=== PATIENT | female | born 1950 | race Caucasian/White ===

== ENCOUNTER 2022-09-29 09:56 | Emergency (ER) | payer MEDICARE, MEDICAID ==
[2022-09-29 10:12] VITALS: BP 207/81
--- NOTE | 2022-09-29 10:53 | XRAY Report ---
PROCEDURE: Chest 2 View X-Ray INDICATIONS: productive cough TECHNIQUE: 2 views of the chest were acquired. COMPARISON: None. FINDINGS: Surgical changes and devices: None. Lungs and pleura: 2.1 cm nodular opacity overlying the left upper lobe. Mediastinum: Mediastinal contours are normal. Heart size is normal. Bones and chest wall: No suspicious bony abnormalities. Soft tissues appear unremarkable. IMPRESSION: 2.1 cm left upper lobe opacity. No priors are available for comparison. Etiology is uncertain as yolanda gnancy versus infection cannot be excluded. CT is recommended for further evaluation. Reviewed by: Yessica Max MD on 09/29/2022 10:52 AM [facility] Approved by: Yessica Max MD on 09/29/2022 10:52 AM [facility] Station ID: [id number]
[2022-09-29 11:44] LABS: CORONAVIRUS 229E-RESP PCR NOT DETECTED; CORONAVIRUS HKU1-RESP PCR NOT DETECTED; CORONAVIRUS NL63-RESP PCR NOT DETECTED; CORONAVIRUS OC43-RESP PCR NOT DETECTED
[2022-09-29 11:45] LABS: B. PARAPERTUSSIS- RESP PCR PAN NOT DETECTED; B. PERTUSSIS- RESP PCR PANEL NOT DETECTED; C. PNEUMONIAE- RESP PCR PANEL NOT DETECTED; HUMAN METAPNEUMOVIRUS NOT DETECTED; INFLUENZA A- RESP PCR PANEL NOT DETECTED; INFLUENZA B - RESP PCR PANEL NOT DETECTED; M. PNEUMONIAE- RESP PCR PANEL NOT DETECTED; PARAINFLUENZA VIRUS 1 NOT DETECTED; PARAINFLUENZA VIRUS 2 NOT DETECTED; PARAINFLUENZA VIRUS 3 NOT DETECTED; PARAINFLUENZA VIRUS 4 NOT DETECTED; RHINOVIRUS/ENTEROVIRUS NOT DETECTED; RSV- RESP PCR PANEL NOT DETECTED; SARS-CoV-2 -RESP PCR PANEL NOT DETECTED
[2022-09-29 12:04] LABS: BASOPHILS % (AUTO) 0.3 %; EOSINOPHILS # (AUTO) 0.1 10^3/uL (0.0-0.7); EOSINOPHILS % (AUTO) 0.8 %; HCT - HEMATOCRIT 41.2 % (37.0-47.0); HGB - HEMOGLOBIN 13.1 g/dL (12.0-16.0); LYMPHOCYTES # (AUTO) 1.5 10^3/uL (1.5-3.5); LYMPHOCYTES % (AUTO) 18.8 %; MEAN CORPUSCULAR HEMOGLOBIN 29.9 pg (27.0-31.0); MEAN CORPUSCULAR HGB CONC 31.8 g/dL (32.0-36.0); MEAN CORPUSCULAR VOLUME 94.1 fL (81.0-99.0); MEAN PLATELET VOLUME 9.4 fL (7.9-10.8); MONOCYTES # (AUTO) 0.6 10^3/uL (0.0-1.0); MONOCYTES % (AUTO) 7.9 %; NEUTROPHILS # (AUTO) 5.7 10^3/uL (1.5-6.6); NEUTROPHILS % (AUTO) 72.1 %; PLT - PLATELET COUNT 266 10^3/uL (130-450); RED BLOOD COUNT 4.38 10^6/uL (4.20-5.40); RED CELL DISTRIBUTION WIDTH 12.6 % (12.0-15.0); WHITE BLOOD COUNT 7.9 x10^3/uL (4.8-10.8)
[2022-09-29 12:18] LABS: ALBUMIN 3.7 g/dL (3.2-5.5); ALBUMIN/GLOBULIN RATIO 0.9 (1.0-2.2); BILIRUBIN,TOTAL 0.3 mg/dL (0.2-1.0); CALCIUM 9.5 mg/dL (8.5-10.3); CREATININE 0.7 mg/dL (0.4-1.0); POTASSIUM 4.1 mmol/L (3.5-5.0); TOTAL PROTEIN 7.6 g/dL (6.7-8.2)
[2022-09-29] MEDS ORDERED: iohexoL-300 100 ML VIAL ONE (14:21)
--- NOTE | 2022-09-29 14:35 | ED Physician Documentation ---
History of Present Illness - Stated complaint Stated Complaint: COUGH - Chief complaint Chief Complaint: Resp - History obtained from History obtained from: Patient - Additonal information Additional information: The patient comes to the emergency department chief complaint of runny nose and nonproductive cough for the last approximately week. She states she has not really felt sick in any other way, other than a little bit of a scratchy throat. No GI symptoms. No fevers or chills. She finally came in because the cough is bothering her and keeping her up at night. She states that she has not had any weight loss and in fact, has gained weight over the last 10 years. No other complaints at this time. No underlying respiratory conditions. PD PAST MEDICAL HISTORY - Past Medical History Past Medical History: No Cardiovascular: None Respiratory: None Neuro: None Endocrine/Autoimmune: None GI: None FOOD SCIENTIST: None : None HEENT: None Psych: None Musculoskeletal: None Derm: None - Past Surgical History Past Surgical History: No - Present Medications Home Medications: Ambulatory Orders Medication Instructions Recorded Confirmed No Known Home Medications 09/29/22 09/29/22 - Allergies Allergies/Adverse Reactions: Allergies Allergy/AdvReac Type Severity Reaction Status Date / Time No Known Drug Allergies Allergy Verified 09/29/22 10:12 - Social History Does the pt smoke?: Yes Smoking Status: Current every day smoker Does the pt drink ETOH?: No Does the pt have substance abuse?: No - Immunizations Immunizations are current?: Yes PD ED PE NORMAL - Vitals Vital signs reviewed: Yes - General General: Alert and oriented X 3, No acute distress, Well developed/nourished - HEENT HEENT: Atraumatic, PERRL, EOMI, Moist mucous membranes - Neck Neck: Supple, no meningeal sign - Cardiac Cardiac: RRR, No murmur, Strong equal pulses - Respiratory Respiratory: No respiratory distress, Clear bilaterally - Abdomen Abdomen: Soft, Non tender, Non distended - Derm Derm: Warm and dry - Extremities Extremities: No deformity, No edema - Neuro Neuro: Alert and oriented X 3 - Psych Psych: Normal mood, Normal affect Results - Vitals Vitals: Oxygen O2 Source Room air - Labs Labs: Laboratory Tests 09/29/22 09/29/22 09/29/22 10:14 11:58 11:58 WBC 7.9 RBC 4.38 Hgb 13.1 Hct 41.2 MCV 94.1 MCH 29.9 MCHC 31.8 L RDW 12.6 Plt Count 266 MPV 9.4 Neut # (Auto) 5.7 Lymph # (Auto) 1.5 [place] # (Auto) 0.6 Eos # (Auto) 0.1 Baso # (Auto) 0.0 Absolute Nucleated RBC 0.00 Nucleated RBC % 0.0 Sodium 139 Potassium 4.1 Chloride 102 Carbon Dioxide 27 Anion Gap 10.0 BUN 19 Creatinine 0.7 Estimated GFR (MDRD) 82 L Glucose 84 Calcium 9.5 Total Bilirubin 0.3 AST 15 ALT 13 Alkaline Phosphatase 76 Total Protein 7.6 Albumin 3.7 Globulin 3.9 Albumin/Globulin Ratio 0.9 L Lipase 28 Nasal Adenovirus (PCR) NOT DETECTED Nasal B. parapertussis DNA (PCR) NOT DETECTED Nasal Coronavir 229E PCR NOT DETECTED Nasal Coronavir HKU1 PCR NOT DETECTED Nasal Coronavir NL63 PCR NOT DETECTED Nasal Coronavir OC43 PCR NOT DETECTED Nasal Enterovir/Rhinovir PCR NOT DETECTED Nasal Influenza B PCR NOT DETECTED Nasal Influenza A PCR NOT DETECTED Nasal Parainfluen 1 PCR NOT DETECTED Nasal Parainfluen 2 PCR NOT DETECTED Nasal Parainfluen 3 PCR NOT DETECTED Nasal Parainfluen 4 PCR NOT DETECTED Nasal RSV (PCR) NOT DETECTED Nasal B.pertussis DNA PCR NOT DETECTED Nasal C.pneumoniae (PCR) NOT DETECTED Jalil Human Metapneumo PCR NOT DETECTED Nasal M.pneumoniae (PCR) NOT DETECTED Nasal SARS-CoV-2 (PCR) NOT DETECTED - Rads (name of study) Chest x-ray Radiology: Final report received, See rad report (Nonspecific opacity, 2.1 cm, left upper lobe. Follow-up CT recommended) PD Medical Decision Making - ED course Complexity details: reviewed results, re-evaluated patient, considered differential, d/w patient ED course: The patient was worked up with a chest x-ray and respiratory PCR initially. These were ordered and reviewed by me, and PCR was found to be negative. Chest x-ray showed a 2.1 cm opacity in the left upper lobe, the etiology of which was unclear. CT was recommended to follow this up and evaluate for malignancy versu s infection. Labs including CBC and ER abdominal panel were ordered by me in preparation for CT scan with contrast. The patient had on evaluation of the labs by me, a normal white blood cell count and normal kidney function. I had discussed with her the findings on x-ray and initially, the patient was agreeable to CT. However, when the data entry technician came to get her, the patient stated she had changed her mind and did not want to get the CT right now and wanted her IV out. I advised her that if she does not get the CT here, then she should definitely follow-up with her primary doctor to discuss having this done soon as possible because of the possibility of malignancy. The patient has expressed understanding. Departure - Departure Disposition: 01 Home, Self Care Clinical Impression: Upper respiratory tract infection Qualifiers: URI type: unspecified viral URI Qualified Code(s): J06.9 - Acute upper respiratory infection, unspecified Condition: Stable Instructions: ED Viral Syndrome Comments: As we have discussed, your labs and viral panel look good. The immediate symptoms of runny nose and acute cough are most likely caused by one of the other viruses that we do not have a specific test for, which are many. On your chest x-ray, you were found to have a "spot" in your left upper lung, which could represent anything from a benign nodule to infection to cancer. As such, we did discuss doing a CT scan here to get better detail on this, which was the recommendation of the radiologist. However, you have declined to have the CT done. It is very important that you follow-up with your doctor as soon as possible for CT scan or at very least, a repeat chest x-ray in a couple of weeks to see if this is resolving. If it is not resolving, then again, it is very important that you have a CT done to be sure that you do not have cancer or some other serious process that can be detected and treated early. You may take [id number] cough medication if needed to help with your symptoms. Discharge Date/Time: 09/29/22 14:44
== END 2022-09-29 14:44 | disposition home or self-care (01) ==
LOC: ED 09:56
DX: J06.9 Acute upper respiratory infection, unspecified (principal); F17.200 Nicotine dependence, unspecified, uncomplicated; Z20.822 Contact with and (suspected) exposure to COVID-19
CPT/HCPCS: 36415; 80053; 83690; 85025; 87633; 99284